=== PATIENT | female | born 1995 | race African-American/Black ===

== ENCOUNTER 2019-08-11 11:01 | Emergency (ER) | payer SELFPAY ==
[2019-08-11] MEDS ORDERED: Albuterol/Ipratropium NEB.SOL* (2.5/0.5 MG) 3 ML NEB.SOLN INH ONE (11:25)
--- NOTE | 2019-08-11 11:27 | ED ---
HPI Chest Pain - HPI Summary HPI Summary: This patient is a 24yo F with no significant PMH presenting to the ED with multiple complaints. Pt states she has had diarrhea x 3 days. She is also stating she has had L sided chest pain radiating to the L arm since last night. She has had this in the past, tends to take ibuprofen and it will be relieved. Last night she became concerned because the pain was worse than it had been in the past. She denies cough, congestion, fevers, sweats or chills. Denies N/V. Takes no medications and denies allergies. No cardiac history. Pt does have asthma history as a child. Never dx with anxiety, but states she could be anxious. She is anxious at this time over her chest pain. Sxs have all but relieved on arrival to the ED, but she remains concerned. No other sxs per patient. She is low risk COVID d/t not leaving her home in 4x weeks and no sick contacts. - History of Current Complaint Time Seen by Provider: 08/11/19 11:02 Hx Obtained From: Patient Onset/Duration: Started Days Ago Timing: Constant Initial Severity: Mild Current Severity: None Pain Scale Used: 0-10 Numeric Chest Pain Location: Left Lateral Chest Pain Radiates: Yes Chest Pain Radiates To:: Arm Character: Dull/Aching Aggravating Factor(s): Position Alleviating Factor(s): Rest, Spontaneous Resolution Associated Signs and Symptoms: Positive: Chest Pain, Anxiety. Negative: Vision Changes, Recent Stress, Headaches - Risk Factors Pulmonary Embolism Risk Factors: Negative TAD Risk Factors: Negative - Allergy/Home Medications Allergies/Adverse Reactions: Allergies Allergy/AdvReac Type Severity Reaction Status Date / Time No Known Allergies Allergy Verified 04/24/16 18:48 Home Medications: Home Medications Ascorbic Acid TAB* [Vitamin C TAB*] 500 mg PO DAILY 08/11/19 [History Confirmed 08/11/19] Ibuprofen TAB* [Advil TAB*] 200 mg PO Q6H PRN 08/11/19 [History Confirmed ] PMH/Surg Hx/FS Hx/Imm Hx Previously Healthy: Yes Cardiovascular History: Denies: Hx Aneurysm, Hx Angina, Hx Angioplasty, Hx Atrial Fibrillation, Hx Auto Implanted Cardiovert Defib, Hx Cardiac Arrest, Hx Cardiomegaly, Hx Congenital Heart Disease, Hx Congestive Heart Failure, Hx Coronary Artery Disease, Hx Deep Vein Thrombosis, Hx Embolism, Hx Hypercholesterolemia, Hx Hypotension, Hx Hypertension, Hx Myocardial Infarction, Hx Pacemaker/ICD, Hx Peripheral Vascular Disease, Hx Rheumatic Fever, Hx Syncope, Hx Valvular Heart Disease, Other Cardiovascular Problems/Disorders Respiratory History: Reports: Hx Asthma Denies: Hx Bronchopulmonary Dysplasia, Hx Chronic Bronchitis, Hx Chronic Obstructive Pulmonary Disease (COPD), Hx Cystic Fibrosis, Hx Lung Cancer, Hx Pleural Effusion, Hx Pneumonia, Hx Pulmonary Edema, Hx Pulmonary Embolism, Hx Seasonal Allergies, Hx Sleep Apnea, Other Respiratory Problems/Disorders Sensory History: Denies: Hx Hearing Problem Neurological History: Reports: Hx Headaches Psychiatric History: Denies: Hx Anxiety, Hx Depression - Immunization History Hx Pertussis Vaccination: No Immunizations Up to Date: Yes - Family History Known Family History: Positive: Other - Hx RDZ and aneurysm in paternal grandmother - Social History Occupation: Employed Full-time Lives: With Family Alcohol Use: None Hx Substance Use: No Substance Use Type: Reports: None Hx Tobacco Use: No Smoking Status (MU): Never Smoked Tobacco Review of Systems Negative: Fever, Chills, Fatigue, Skin Diaphoresis Positive: Chest Pain. Negative: Palpitations Positive: Shortness Of Breath. Negative: Cough Genitourinary: Negative Positive: no symptoms reported, see HPI Positive: Myalgia - left sided rib pain Negative: Rash, Bruising Neurological/Mental Status: Negative All Other Systems Reviewed And Are Negative: Yes Physical Exam Triage Information Reviewed: Yes Vital Signs Reviewed: Yes Appearance: Positive: Well-Appearing, Well-Nourished Skin: Positive: Warm, Skin Color Reflects Adequate Perfusion Head/Face: Positive: Normal Head/Face Inspection Eyes: Positive: EOMI, CHITRA, Conjunctiva Clear Neck: Positive: Supple, Nontender, No Lymphadenopathy Respiratory/Lung Sounds: Positive: Clear to Auscultation, Breath Sounds Present Cardiovascular: Positive: RRR, Pulses are Symmetrical in both Upper and Lower Extremities Musculoskeletal: Positive: Normal Neurological: Positive: Speech Normal Psychiatric: Positive: Affect/Mood Appropriate Procedures - Sedation Patient Received Moderate/Deep Sedation with Procedure: No Diagnostics - Laboratory Result Diagrams: 08/11/19 11:50 08/11/19 11:50 Lab Statement: Any lab studies that have been ordered have been reviewed, and results considered in the medical decision making process. Chest Pain Course/Dx - Course Course Of Treatment: On arrival into the ED, the patient appears well. She is non- diaphoretic and nontoxic appearing. Patient states her chest pain has all but resolved, however it is concerning as she states it was a deep pressure and ache radiating into the left arm. Patient also endorses some shortness of breath since this morning, however she states this is only when taking a deep breath. She denies any recent travel. She denies OCP use. Sxs worse with movement, better with rest. Worse with abduction of the L arm. Denies known malignancy or smoking history. She denies any clotting disorders. Vital signs are stable and denies any fevers, sweats, chills. VS stable. Labs WNL. CXR: negative for acute findings. BP stable. EKG: NSR with rate of 95. Pt is not tachypnic or tachy. PERC score negative. HEART score = LOW RISK. PT dx with MSK pain. Diff includes angina, atypical chest pain, SOB, anxiety. - Diagnoses Provider Diagnoses: Musculoskeletal back pain - Critical Care Time Critical Care Statement: Critical care time is provided exclusive of any time spent performing procedures. Discharge ED - Sign-Out/Discharge Documenting (check all that apply): Patient Departure - Discharge Plan Condition: Stable Disposition: HOME Patient Education Materials: Musculoskeletal Pain (ED) Referrals: Babita Cardona DO [Doctor of Osteopathy] - Additional Instructions: Moist heat to the L side may help with symptoms Ibuprofen 600mg four times daily Gentle stretches will help - Billing Disposition and Condition Condition: STABLE Disposition: Home
[2019-08-11 12:00] LABS: ABS Lymphocytes 2.1 10^3/ul (1.0-4.8); ABS Monocytes 0.5 10^3/ul (0-0.8); ABS Neutrophils 3.5 10^3/ul (1.5-7.7); Eosinophil % 0.6 %; Hematocrit 38 % (35-47); Hemoglobin 12.6 g/dL (12.0-16.0); Lymphocyte % 33.8 %; Mean Corpuscular HGB Conc 33 g/dL (31-36); Mean Corpuscular Hemoglobin 27 pg (27-31); Mean Corpuscular Volume 82 fL (80-97); Mean Platelet Volume 7.9 fL (7.4-10.4); Nucleated Red Blood Cells % 0.1; Platelet Count 237 10^3/uL (150-450); Red Cell Distribution Width 13 % (10-15); White Blood Count 6.2 10^3/uL (3.5-10.8)
[2019-08-11] MEDS ORDERED: Albuterol/Ipratropium NEB.SOL* (2.5/0.5 MG) 3 ML NEB.SOLN INH SCH (12:00)
[2019-08-11 12:18] LABS: Albumin/Globulin Ratio 1.1 (1-3); BUN/Creatinine Ratio 13.1 (8-20); Calcium 9.5 mg/dL (8.6-10.3); EGFR African American 102.6 (>60); EGFR Non-African American 84.8 (>60); Globulin 3.5 g/dL (2-4); Magnesium 1.9 mg/dL (1.9-2.7); Potassium 4.3 mmol/L (3.5-5.0); Total Bilirubin 0.5 mg/dL (0.2-1.0); Total Protein 7.5 g/dL (6.4-8.9)
[2019-08-11 12:28] LABS: INR 1.11 (0.82-1.09)
[2019-08-11 13:09] LABS: T4, Total 11.23 mcg/dL (6.09-12.23)
[2019-08-11 13:13] LABS: TSH (Thyroid Stimulating Horm) 1.14 mcIU/mL (0.34-5.60)
[2019-08-11 14:02] VITALS: BP 122/74
== END 2019-08-11 14:01 | disposition home or self-care (01) ==
LOC: ED 11:01
DX: M54.9 Dorsalgia, unspecified (principal); R07.9 Chest pain, unspecified; F41.9 Anxiety disorder, unspecified; R06.02 Shortness of breath
CPT/HCPCS: 36415; 71046; 80053; 83735; 84436; 84443; 84484; 85025; 85610; 93005; 99283